=== PATIENT | female | born 1945 | race Caucasian/White ===

== ENCOUNTER 2021-06-20 12:11 | Inpatient (IN) | payer MEDICAID, MEDICARE ==
[~2021-06-20] VITALS: Ht 165.1 cm; Wt 68.0 kg
[~2021-06-20 12:11] MED LIST: DICL75TA PO; LORA0.5T48 PO; [UNRECOGNIZED DRUG - OTHER]
[2021-06-20 14:42] LABS: HEMATOCRIT 39.9 % (31.2-41.9); MEAN CORPUSCULAR HEMOGLOBIN 31.1 uug (24.7-32.8); MEAN CORPUSCULAR VOLUME 92.4 fL (75.5-95.3); PLATELET COUNT (AUTO) 264 K/uL (179-408)
[2021-06-20] MEDS ORDERED: LORAZEPAM 2 MG/1 ML VIAL IV ONE ×2 (14:45→17:45)
[2021-06-20 14:47] LABS: *BILIRUBIN,URIN NEGATIVE (NEGATIVE); *BLOOD, URINE NEGATIVE (NEGATIVE); *CLARITY,URINE CLEAR (CLEAR); *COLOR,URINE YELLOW (YELLOW); *KETONES,URINE NEGATIVE (NEGATIVE); *UROBILINOGEN,URINE 0.2 E.U./dl (NORMAL); LEUKOCYTE ESTERASE ,URINE NEGATIVE (NEGATIVE); NITRITE, URINE NEGATIVE (NEGATIVE); UGLUCOSE NEGATIVE (NEGATIVE)
[2021-06-20 14:49] LABS: CREATININE 0.8 mg/dL (0.6-1.3); POTASSIUM 3.5 mmol/L (3.5-5.1)
[2021-06-20] MEDS ORDERED: LORAZEPAM 2 MG/1 ML VIAL ONE ×3 (15:04→21:14)
[2021-06-20 15:05] LABS: BILIRUBIN,DIRECT 0.1 mg/dL (0.0-0.2); BILIRUBIN,TOTAL 0.5 mg/dL (0.2-1.0); TOTAL PROTEIN, SERUM 7.8 g/dL (6.4-8.2)
[2021-06-20] MEDS ORDERED: TEMAZEPAM 15 MG CAPSULE PO PRN (19:45)
[2021-06-20] MEDS ORDERED: ONDANSETRON 4 MG/2 ML VIAL IV PRN (19:45)
[2021-06-20] MEDS ORDERED: ACETAMINOPHEN 325 MG TABLET PO PRN (19:45)
[2021-06-20] MEDS ORDERED: LORAZEPAM 2 MG/1 ML VIAL IM ONE (21:15)
[2021-06-20] MEDS: DOCUSATE SODIUM 100 MG CAPSULE PO SCH (21:56)
[2021-06-20] MEDS ORDERED: DOCUSATE SODIUM 100 MG CAPSULE PO ONE ×2 (22:01→22:02)
[2021-06-21 00:30] VITALS: BP 135/66
[2021-06-21 04:00] VITALS: BP 98/71
[2021-06-21] MEDS: PANTOPRAZOLE SODIUM 40 MG TABLET.DR PO SCH (06:21)
[2021-06-21 06:54] LABS: HEMATOCRIT 36.5 % (31.2-41.9); MEAN CORPUSCULAR HEMOGLOBIN 31.1 uug (24.7-32.8); MEAN CORPUSCULAR VOLUME 93.2 fL (75.5-95.3); PLATELET COUNT (AUTO) 228 K/uL (179-408)
[2021-06-21 07:19] LABS: THYROID STIMULATING HORMONE 30.741 mIU/mL (0.358-3.740)
[2021-06-21 07:53] LABS: BILIRUBIN,TOTAL 0.4 mg/dL (0.2-1.0); CREATININE 0.8 mg/dL (0.6-1.3); MAGNESIUM 1.9 mg/dL (1.8-2.4); PHOSPHOROUS 3.9 mg/dL (2.5-4.9); TOTAL PROTEIN, SERUM 6.7 g/dL (6.4-8.2)
[2021-06-21 11:10] VITALS: BP 100/45
[2021-06-21] MEDS: QUETIAPINE FUMARATE 25 MG TABLET PO PRN (14:02)
[2021-06-21 15:31] VITALS: BP 113/67
[2021-06-21] MEDS: ATORVASTATIN 20 MG TABLET PO SCH (20:14)
[2021-06-21] MEDS: DOCUSATE SODIUM 100 MG CAPSULE PO SCH (20:14)
[2021-06-21 20:50] VITALS: BP 121/66
[2021-06-22] MEDS: QUETIAPINE FUMARATE 25 MG TABLET PO PRN ×3 (00:52→21:44)
[2021-06-22 04:42] VITALS: BP 128/66
[2021-06-22] MEDS: LEVOTHYROXINE SODIUM 50 MCG TABLET PO SCH (06:04)
[2021-06-22] MEDS: PANTOPRAZOLE SODIUM 40 MG TABLET.DR PO SCH (06:04)
[2021-06-22 12:00] VITALS: BP 116/77
[2021-06-22 16:37] VITALS: BP 113/77
[2021-06-22 20:03] VITALS: BP 106/50
[2021-06-22] MEDS: DOCUSATE SODIUM 100 MG CAPSULE PO SCH (20:30)
[2021-06-22] MEDS: ATORVASTATIN 20 MG TABLET PO SCH (20:30)
[2021-06-23 04:03] VITALS: BP 110/65
[2021-06-23] MEDS: PANTOPRAZOLE SODIUM 40 MG TABLET.DR PO SCH (06:08)
[2021-06-23] MEDS: LEVOTHYROXINE SODIUM 50 MCG TABLET PO SCH (06:08)
[2021-06-23] MEDS: QUETIAPINE FUMARATE 25 MG TABLET PO PRN (09:19)
[2021-06-23 11:52] VITALS: BP 109/73
[2021-06-23] MEDS ORDERED: QUET25TA36 PO (13:00)
[2021-06-23] MEDS ORDERED: ACET325T53 PO (13:00)
[2021-06-23] MEDS ORDERED: ATOR20TA PO (13:00)
[2021-06-23] MEDS ORDERED: LEVO50TA8 PO (13:00)
[2021-06-23] MEDS ORDERED: MULT-594 PO (13:00)
[2021-06-23] MEDS ORDERED: TEMA15CA PO (13:00)
[2021-06-23] MEDS ORDERED: DOCU-141 PO (13:00)
[2021-06-23] MEDS ORDERED: PANT40TA49 PO (13:00)
== END 2021-06-23 15:10 | DRG 71 ==
LOC: ER 12:11 → TRANSITION 19:45 → UNDOADMIN 20:44 → TELE3 23:41 → TRANSITION 23:41 → MEDSURG3 06-21 11:25
PROVIDERS: ADMIT Internal Medicine; ATTEND Internal Medicine
DX: G93.40 Encephalopathy, unspecified (principal); D68.59 Other primary thrombophilia; F03.91 Unspecified dementia, unspecified severity, with behavioral disturbance; Z60.2 Problems related to living alone; E03.9 Hypothyroidism, unspecified; E78.5 Hyperlipidemia, unspecified; F32.A Depression, unspecified; F41.9 Anxiety disorder, unspecified; Z20.822 Contact with and (suspected) exposure to COVID-19; M19.90 Unspecified osteoarthritis, unspecified site; K21.9 Gastro-esophageal reflux disease without esophagitis; Z74.09 Other reduced mobility; M50.30 Other cervical disc degeneration, unspecified cervical region
CPT/HCPCS: 36415; 70030-TC; 70450; 71045; 72125; 83605; 83735; 84100; 84443; 85025; 85730; 87040; 87086; 93005; 97161; A4663; G0378; J2060; J7040

== ENCOUNTER 2021-06-25 17:13 | Inpatient (IN) | payer MEDICARE, OTHER ==
[~2021-06-25] VITALS: Ht 165.1 cm; Wt 62.6 kg
[~2021-06-25 17:13] MED LIST changes: +ACET325T53 PO; +ATOR20TA PO; -DICL75TA PO; +DOCU-141 PO; +LEVO50TA8 PO; -LORA0.5T48 PO; +MULT-594 PO; +PANT40TA49 PO; +QUET25TA36 PO; +TEMA15CA PO; -[UNRECOGNIZED DRUG - OTHER]
[2021-06-25 17:45] LABS: HEMATOCRIT 37.1 % (31.2-41.9); MEAN CORPUSCULAR HEMOGLOBIN 31.5 uug (24.7-32.8); MEAN CORPUSCULAR VOLUME 92.6 fL (75.5-95.3); PLATELET COUNT (AUTO) 238 K/uL (179-408)
[2021-06-25 17:53] LABS: ETHANOL < 3 MG/DL (0-0)
[2021-06-25 17:57] LABS: ALANINE AMINOTRANSFERASE 17 U/L (14-59); ALKALINE PHOSPHATASE 56 U/L (50-136); ASPARTATE AMINOTRANSFERASE 17 U/L (15-37); BILIRUBIN,DIRECT 0.1 mg/dL (0.0-0.2); BILIRUBIN,TOTAL 0.4 mg/dL (0.2-1.0); CARBON DIOXIDE 22 mmol/L (21-32); CHLORIDE 97 mmol/L (98-107); CREATININE 0.8 mg/dL (0.6-1.3); GLUCOSE 125 mg/dL (74-106); POTASSIUM 3.4 mmol/L (3.5-5.1); TOTAL PROTEIN, SERUM 7.3 g/dL (6.4-8.2); UREA NITROGEN, BLOOD 17 mg/dL (7-18)
[2021-06-25 18:01] LABS: ACETAMINOPHEN < 2.0 ug/mL (10-30)
[2021-06-25] MEDS ORDERED: NA P133E RC (18:26)
[2021-06-25] MEDS ORDERED: BISA10SU61 RC (18:26)
[2021-06-25] MEDS ORDERED: MULT-213 PO (18:26)
[2021-06-25] MEDS ORDERED: CRAN425C6 PO (18:26)
[2021-06-25] MEDS ORDERED: MAGN400O6 PO (18:26)
[2021-06-25] MEDS ORDERED: QUET25TA PO (18:34)
[2021-06-25 19:16] LABS: *BILIRUBIN,URIN NEGATIVE (NEGATIVE); *CLARITY,URINE CLEAR (CLEAR); *COLOR,URINE LIGHT YELLOW (YELLOW); *KETONES,URINE NEGATIVE (NEGATIVE); *UROBILINOGEN,URINE 0.2 E.U./dl (NORMAL); LEUKOCYTE ESTERASE ,URINE NEGATIVE (NEGATIVE); NITRITE, URINE NEGATIVE (NEGATIVE); PH,URINE 5.5 (5.0-8.0); UGLUCOSE NEGATIVE (NEGATIVE)
[2021-06-25 19:22] LABS: *BLOOD, URINE TRACE (NEGATIVE)
[2021-06-25 19:23] LABS: BACTERIA,URINE NONE SEEN /HPF (NONE SEEN); RBC,URINE 0-3 /HPF (0-3); SQUAMOUS EPITHELIAL CELL,UR FEW /HPF (NONE SEEN); WBC,URINE 0-3 /HPF (0-3)
[2021-06-25 19:26] LABS: *AMPHETAMINE, URINE NEGATIVE (NEGATIVE); *CANNABINOID, URINE NEGATIVE (NEGATIVE); *COCCAINE, URINE NEGATIVE (NEGATIVE); *OPIATE, URINE NEGATIVE (NEGATIVE); *PHENCYCLIDINE SCREEN,URINE NEGATIVE (NEGATIVE)
[2021-06-25] MEDS ORDERED: MIDAZOLAM HCL 2 MG/2 ML VIAL IV ONE (19:30)
[2021-06-25] MEDS ORDERED: MIDAZOLAM HCL 2 MG/2 ML VIAL ONE (19:43)
[2021-06-25] MEDS ORDERED: MIDAZOLAM HCL 2 MG/2 ML VIAL IM ONE (19:45)
--- NOTE | 2021-06-25 20:06 | NUR ---
CALLED CRISIS TEAM THALIA AT [phone] AND WILL BE ON HER WAY.
[2021-06-25] MEDS ORDERED: OLANZAPINE 10 MG VIAL IM ONE ×5 (21:00→23:17)
--- NOTE | 2021-06-25 22:10 | NUR ---
GAVE REPORT TO WILLOW.
[2021-06-25] MEDS ORDERED: LORAZEPAM 2 MG/1 ML VIAL IM ONE (23:15)
[2021-06-25] MEDS ORDERED: MAG HYDROX/AL HYDROX/SIMETH 30 ML LIQUID UDC PO PRN (23:30)
[2021-06-25] MEDS ORDERED: LORAZEPAM 0.5 MG TABLET PO PRN (23:30)
[2021-06-25] MEDS ORDERED: ACETAMINOPHEN 325 MG TABLET PO PRN (23:30)
[2021-06-25] MEDS ORDERED: MAGNESIUM HYDROXIDE 30 ML LIQUID UDC PO PRN (23:30)
[2021-06-26 00:15] VITALS: BP 125/68
--- NOTE | 2021-06-26 00:45 | NUR ---
ADMISSION NOTED/CHEMICAL RESTRAIN: ADMITTED AT [facility] LAST NIGHT AT APPROX 2315, A 76 YEARS OLD FEMALE, FARSI SPEAKER, ON A 72 HRS HOLD FOR DTO AND GD UNDER THE CARE OF DR VILLEDA. PER RECORDS, PATIENT LIVES AT [facility]. PER HOLD, AND ACCORDING TO THE FACILITY, PATIENT WAS INCREASINGLY CONFUSED AND AGITATED, WANTING TO LEAVE THE FACILITY; THROWING THINGS ON THE FLOOR, SHAKING HER BED, SLAMMING WATER PITCHER ON THE FLOOR, DOES NOT RESPOND TO REDIRECTION, LOUD, DISRUPTIVE. DURING FACE TO FACE ASSESSMENT BY CRISIS TEAM, PATIENT IS CONFUSED, DISORGANIZE, AND DISORIENTED. SHE WAS SCREAMING, YELLING ANXIOUS AND RESTLESS. SHE WAS GIVEN EMERGENCY MEDICATION TO CALM HER DOWN. HOLD WILL ON 06/28/21 AT 2107. UPON ADMISSION TO THE UNIT, PATIENT WAS NOTED A/O X 1. SHE WAS NOTED CONFUSED, RESTLESS, COMBATIVE; SHE APPEARED DISORIENTED. SHE WAS TRYING TO LEAVE THE UNIT, SHE WAS LOUD AND UNABLE TO BE REDIRECTED. DR VILLEDA WAS NOTIFIED AND NEW ORDER OBTAINED TO ADMINISTER ZYPREXA 5MG IM AND ATIVAN 1MG IM ONE TIME ONLY. ORDER WAS NOTED AND CARRIED OUT. FACE TO FACE ASSESSMENT WAS DONE, PATIENT REFLECTS WHAT IS WRITTEN ON THE HOLD. PATIENT WAS GIVEN HER ADVISEMENT WELL HER BOOKLET FOR PATIENT'S RIGHT TO MENTAL HEALTH FACILITY. HEAD TO TOE SKIN ASSESSMENT WAS LIMITED D/T PATIENT'S POOR COMPLIANT. HOWEVER, IT WAS NOTED MULTIPLE BRUISES ON BOTH ARMS AND LEFT POSTERIOR HAND, IT WAS ALSO NOTED EDEMA +1 ON BOTH LOWER EXTREMITIES. WILL CONTINUE TO MONITOR.
--- NOTE | 2021-06-26 01:00 | NUR ---
REASSESSMENT CHEMICAL RESTRAIN: PATIENT NOTED SITTING IN A BRANDY CHAIR NEAR THE NURSING STATION FOR SAFETY. SHE IS NOTED LESS COMBATIVE LESS AGITATED; HOWEVER, SHE CONTINUE RESTLESS AND UNABLE TO CFS. WILL CONTINUE TO MONITOR.
--- NOTE | 2021-06-26 01:45 | NUR ---
PATIENT NOTED SLEEPING IN HER BED COMFORTABLY. WILL CONTINUE Q15 MIN CHECKS PER UNIT PROTOCOL.
[2021-06-26 03:35] VITALS: BP 125/68
[2021-06-26] MEDS: LEVOTHYROXINE SODIUM 50 MCG TABLET PO SCH (07:00)
--- NOTE | 2021-06-26 07:08 | NUR ---
Patient slept for approx 4hrs through the night. she refused blood drawn this morning. she also refused Synthroid medication. will continue to monitor.
[2021-06-26 08:14] VITALS: BP 111/72
[2021-06-26] MEDS: QUETIAPINE FUMARATE 25 MG TABLET PO SCH ×3 (10:35→20:16)
--- NOTE | 2021-06-26 15:06 | NUR ---
JANA Initial Discharge Note: Pt currently resides at [id number] [place] [id number] ([phone]). Per pt's daughter, the family does not want the pt to discharge back to current facility. Pt's daughter Shameka ([phone]) provided [facility] location and stated that is next in line at their facility upon bed availability. JANA will continue to work with pt, family and MD to ensure a safe and proper discharge plan.
[2021-06-26 16:30] VITALS: BP 127/78
[2021-06-26] MEDS: ATORVASTATIN 20 MG TABLET PO SCH (20:15)
--- NOTE | 2021-06-26 20:37 | NUR ---
Received patient in the [facility], med compliant, and interacts with staff. Patient will remain in a psych facility for further evaluation and treatment.
[2021-06-26 22:17] VITALS: BP 128/68
--- NOTE | 2021-06-27 04:18 | NUR ---
Firearms Report: Field Geologist completed and submitted a [employer]J firearms report for 5150 danger to others and grave disability certifications. A copy of report has been placed in patient chart.
[2021-06-27] MEDS: LEVOTHYROXINE SODIUM 50 MCG TABLET PO SCH (06:22)
--- NOTE | 2021-06-27 08:00 | NUR ---
Gps/Anesthesiology Medical Doctor- Patient received suitting on her raquel- chair, extrmely anxious and agitated, banging her table, yelling , lound and difficulty redirecting patient. Patient speaks Farsi, unable tto get environmental sciences professor, unable to use environmental sciences professor phone. Dr Laboy was in to see patient, observed of increased agitation, labile mood, safety emphasized. Patches of multiple bruises/ecchymosis to her forearms.
[2021-06-27] MEDS ORDERED: OLANZAPINE 10 MG VIAL IM ONE (08:30)
[2021-06-27 09:00] VITALS: BP 112/71
[2021-06-27] MEDS: QUETIAPINE FUMARATE 25 MG TABLET PO SCH ×3 (09:00→21:24)
[2021-06-27] MEDS: ASPIRIN EC 81 MG TABLET.DR PO SCH (09:00)
--- NOTE | 2021-06-27 10:00 | NUR ---
Gps/Pantry Steward/Stewardess -Per son from [facility], on speaker phone trying to talk to the patient , trying to calm her down,. Son verbalized feelings of being upset, " iI have my siblings , my sister and my brother, they want my mother to be , i had brain surgery, i cant healp " informed of the Hot Press Operator Zahra stated words by son from [place].Son from [place] also stated," Hospital foods are thwe worst, they are poison", does not want his mother drinking milk .
--- NOTE | 2021-06-27 11:30 | NUR ---
Gps/Seafood Technology Specialist- Kept up in her chair for safety, monitoring needs, talking to herself in her own languages. Reoffered routine am meds, crushed with apple sauce.
[2021-06-27] MEDS: LORAZEPAM 0.5 MG TABLET PO PRN (12:39)
[2021-06-27 20:44] VITALS: BP 91/43
[2021-06-27] MEDS: ATORVASTATIN 20 MG TABLET PO SCH (21:24)
[2021-06-27] MEDS: ZOLPIDEM 5 MG TABLET PO PRN (22:27)
[2021-06-28] MEDS: LORAZEPAM 0.5 MG TABLET PO PRN ×2 (02:00→21:40)
--- NOTE | 2021-06-28 04:05 | NUR ---
Received to care, up in raquel chair, initially sleeping, but woke around 1999, talking to self, but answering appropriately. She was compliant with her bedtime medications, and was assisted with feeding herself a snack of apple juice, pudding and jello, since her hands were shaky. She was given a PRN Ambien at 2226, and then she was assisted to the bathroom(unsteady gait) and bed. Within a few minutes, she was trying to get up, so she was assisted back into the raquel chair, for safety. Since then, she appears to have gotten more confused and psychotic, talking to self, appearing distracted by internal stimuli. She refused PRN Ativan, which was offered several times, since 020, hasn't slept and remains confused, at this time.
--- NOTE | 2021-06-28 04:38 | NUR ---
She was assisted to the bathroom, and ambulated down the hallway, to her room. When she got there, she stayed at her doorway, and refused to go inside. after a few minutes, she eventually was assisted back in the raquel chair, for safety. After a few minutes, she fell asleep, and remains asleep. no distress, noted.
[2021-06-28] MEDS: LEVOTHYROXINE SODIUM 50 MCG TABLET PO SCH (06:55)
[2021-06-28 08:00] VITALS: BP 119/61
[2021-06-28] MEDS: ASPIRIN EC 81 MG TABLET.DR PO SCH (09:00)
[2021-06-28] MEDS: QUETIAPINE FUMARATE 25 MG TABLET PO SCH ×3 (09:53→21:00)
[2021-06-28] MEDS ORDERED: QUETIAPINE FUMARATE 25 MG TABLET PO PRN (15:30)
[2021-06-28 15:42] VITALS: BP 118/72
[2021-06-28 20:00] VITALS: BP 99/54
[2021-06-28] MEDS: ATORVASTATIN 20 MG TABLET PO SCH (21:00)
--- NOTE | 2021-06-28 21:30 | NUR ---
Received to care, up in raquel chair, at nurses station, talking to self in Farsi, refusing all medications, food, and fluids. Becomes physically aggressive, at times, with staff, when care is attempted. Currently yelling loudly, banging on the table. Staff is unable to redirect her behavior. Will continue to monitor closely.
[2021-06-28] MEDS: ZOLPIDEM 5 MG TABLET PO PRN (21:39)
[2021-06-28] MEDS ORDERED: OLANZAPINE 10 MG VIAL IM PRN (21:45)
--- NOTE | 2021-06-28 21:45 | NUR ---
Remains agitated, yelling and banging on table, She tries to scratch or hit staff, when they are in her vicinity. Continues to refuse all medications, food, fluids, or toileting. Dr Nicole was paged. New orders were received. Awaiting Pharmacy approval to carry them out.
--- NOTE | 2021-06-28 22:22 | NUR ---
Zyprexa 5 mg IM was given to Left hip at this time, per MD orders. Remains up in raquel chair at nurses station for safety, and closer monitoring.
--- NOTE | 2021-06-29 00:30 | NUR ---
Remains restless, yelling out, but appears calmer, and exhibits no signs of physical aggression. Remains up in raquel chair, for safety.
[2021-06-29 00:34] LABS: HEMATOCRIT 38.8 % (31.2-41.9); MEAN CORPUSCULAR HEMOGLOBIN 31.2 uug (24.7-32.8); MEAN CORPUSCULAR VOLUME 92.3 fL (75.5-95.3); PLATELET COUNT (AUTO) 233 K/uL (179-408)
[2021-06-29 00:44] LABS: MAGNESIUM 1.9 mg/dL (1.8-2.4); PHOSPHOROUS 4.1 mg/dL (2.5-4.9)
[2021-06-29 00:46] LABS: BILIRUBIN,TOTAL 0.5 mg/dL (0.2-1.0); CREATININE 0.8 mg/dL (0.6-1.3); POTASSIUM 3.8 mmol/L (3.5-5.1); TOTAL PROTEIN, SERUM 7.3 g/dL (6.4-8.2)
[2021-06-29] MEDS: ZOLPIDEM 5 MG TABLET PO PRN (01:36)
--- NOTE | 2021-06-29 02:00 | NUR ---
Pt was assisted to bed at 0115. She continued to be restless and agitated, so she was given PRN Ambien at 0136. As of now, she appears to be asleep. No distress noted. Monitored closely for safety.
[2021-06-29] MEDS: LEVOTHYROXINE SODIUM 50 MCG TABLET PO SCH (07:00)
[2021-06-29 08:00] VITALS: BP 111/71
[2021-06-29 08:55] LABS: HEMATOCRIT 35.9 % (31.2-41.9); MEAN CORPUSCULAR HEMOGLOBIN 31.2 uug (24.7-32.8); MEAN CORPUSCULAR VOLUME 92.1 fL (75.5-95.3); PLATELET COUNT (AUTO) 224 K/uL (179-408)
[2021-06-29 09:03] LABS: CREATININE 0.8 mg/dL (0.6-1.3); POTASSIUM 3.7 mmol/L (3.5-5.1)
[2021-06-29 09:09] LABS: BILIRUBIN,TOTAL 0.6 mg/dL (0.2-1.0); TOTAL PROTEIN, SERUM 6.6 g/dL (6.4-8.2)
[2021-06-29] MEDS: LORAZEPAM 0.5 MG TABLET PO PRN (09:09)
[2021-06-29] MEDS: ASPIRIN EC 81 MG TABLET.DR PO SCH (09:09)
[2021-06-29] MEDS: QUETIAPINE FUMARATE 25 MG TABLET PO SCH ×3 (09:10→20:29)
--- NOTE | 2021-06-29 11:53 | NUR ---
GPS: Nursing Notes: Thought Disorder: Patient is awake and responding to her name, unable to speak Indonesian, but talking Farsi to staff, trying to climb over the side rail without any regard for her safety this am, needs assistance with ambulation, unsteady gait, needs prompting to participate in therapeutic groups, continue to monitor for safety, resistant with nursing care at times, A/Ox1, unable to formulate a viable plan for self care, continue with treatment plan.
[2021-06-29 16:00] VITALS: BP 102/61
[2021-06-29 20:10] VITALS: BP 110/62
[2021-06-29] MEDS: ATORVASTATIN 20 MG TABLET PO SCH (20:29)
[2021-06-30] MEDS: LEVOTHYROXINE SODIUM 50 MCG TABLET PO SCH (06:02)
--- NOTE | 2021-06-30 06:13 | NUR ---
GPS: Patient remained awake most of the night. slept only 3.45 hrs through the night. refused all po meds. alert to name only. awake and responding to her name, speaks some Mohawk, but mostly speaks Farsi to staff, unsteady gait needs assistance. assisted with adl's. continue to monitor for safety, continue plan of care.
[2021-06-30 08:00] VITALS: BP 116/66
[2021-06-30] MEDS: QUETIAPINE FUMARATE 25 MG TABLET PO SCH ×3 (08:15→21:14)
[2021-06-30] MEDS: ASPIRIN EC 81 MG TABLET.DR PO SCH (08:15)
--- NOTE | 2021-06-30 10:47 | NUR ---
GPS: Nursing Notes: Thought Disorder: Patient is awake and responding to her name, impaired judgment, able to speak Vietnamese, but regressing to speak her emmonak language - Farsi to staff at times, needs a lot of prompting to be compliant with her AM medications, needs assistance with ADL's, unsteady gait, needs assistance with ambulation, but patient believes that she can walk without assistance, history of falling at her facility, resistant with nursing care at times, unable to formulate a viable plan for self care, continue to monitor for safety, continue with treatment plan.
[2021-06-30] MEDS: LORAZEPAM 0.5 MG TABLET PO PRN (12:23)
[2021-06-30 16:00] VITALS: BP 108/75
[2021-06-30] MEDS: ENSURE ENLIVE (VAN) 240 ML LIQUID PO SCH (16:34)
[2021-06-30] MEDS: ZOLPIDEM 5 MG TABLET PO PRN (21:14)
[2021-06-30] MEDS: ATORVASTATIN 20 MG TABLET PO SCH (21:15)
[2021-07-01 00:13] VITALS: BP 103/54
[2021-07-01] MEDS: LEVOTHYROXINE SODIUM 50 MCG TABLET PO SCH (06:49)
[2021-07-01] MEDS: ASPIRIN EC 81 MG TABLET.DR PO SCH (08:15)
[2021-07-01] MEDS: QUETIAPINE FUMARATE 25 MG TABLET PO SCH ×3 (08:15→20:16)
[2021-07-01] MEDS: ENSURE ENLIVE (VAN) 240 ML LIQUID PO SCH ×2 (08:16→16:45)
[2021-07-01 08:30] VITALS: BP 96/55
--- NOTE | 2021-07-01 09:24 | NUR ---
JANA Facility Contact: JANA contacted [facility] for [facility] [place] ([phone]) and spoke with Laureen who stated that they do not have the pt's application from the family and there is a several month waiting list even after referral from [place]. JANA also contacted [facility] ([phone]) and spoke with Jenise regarding referring the pt and Jenise stated they are aware of the pt and are now open for admission. JANA sent referral packet to facility and waiting to hear back.
--- NOTE | 2021-07-01 13:44 | NUR ---
GPS: Nursing Notes: Thought Disorder: Patient is awake and responding to her name, gets easily irritable when redirected, impaired judgment, resistant with nursing care at times, redirected and reoriented during shift, disoriented, forgetful at times, need prompting to participate in therapeutic groups, assisted with ADL's, ambulatory with supervision, unsteady gait, unable to formulate a viable plan for self care, continue to monitor for safety, continue with treatment plan.
[2021-07-01] MEDS: LORAZEPAM 0.5 MG TABLET PO PRN (17:35)
[2021-07-01 18:32] VITALS: BP 102/55
[2021-07-01 20:00] VITALS: BP 115/61
[2021-07-01] MEDS: ATORVASTATIN 20 MG TABLET PO SCH (20:16)
[2021-07-01] MEDS: ZOLPIDEM 5 MG TABLET PO PRN (23:06)
--- NOTE | 2021-07-02 02:43 | NUR ---
Received to care, up in raquel chair, talking to self. yelling, and easily agitated at times, but compliant with medications, and Bedtime snack. PRN Cesario was given at 2306. She was assisted to the bathroom, but refused to go. Diaper changed, with some resistance. As of now, she appears to be sleeping. No distress noted.
[2021-07-02] MEDS: LEVOTHYROXINE SODIUM 50 MCG TABLET PO SCH (06:53)
--- NOTE | 2021-07-02 06:59 | NUR ---
Slept 5 hours. is now awake, and calm. No distress noted.
[2021-07-02] MEDS: ASPIRIN EC 81 MG TABLET.DR PO SCH (08:32)
[2021-07-02] MEDS: QUETIAPINE FUMARATE 25 MG TABLET PO SCH ×2 (08:32→16:23)
[2021-07-02] MEDS: ENSURE ENLIVE (VAN) 240 ML LIQUID PO SCH ×2 (08:33→16:23)
--- NOTE | 2021-07-02 12:01 | NUR ---
JANA Family Contact: Pt's son Jorge ([phone]) contacted JANA and stated that [facility] ([phone]) notified the family that all they need to accept the pt is referral paperwork from [facility]. JANA notified Jorge that SW spoke with [facility] and they reported to JANA that there is a 3 month long waiting list and they will not be able to accept the patient as they do not even have an application on file for the pt. Jorge asked JANA to not call [facility] anymore and let him make the calls. Jorge appeared frustrated and asked JANA and reported to SW that Jorge will also talk to Dr. Laboy regarding pt's progress.
--- NOTE | 2021-07-02 13:21 | NUR ---
GPS: Nursing Notes: Thought Disorder: Patient is awake and responding to her name, impaired judgment, resistant with nursing care at times, sundown behavior, gets easily irritable when redirected, unable to formulate a viable plan for self care, disoriented, needs assistance with ADL's, believes that she is leaving today, continue to monitor for safety, continue with treatment plan.
[2021-07-02] MEDS: LORAZEPAM 0.5 MG TABLET PO PRN ×2 (14:21→23:33)
[2021-07-02 15:46] VITALS: BP 108/68
[2021-07-02 19:46] VITALS: BP 125/74
[2021-07-02] MEDS: ATORVASTATIN 20 MG TABLET PO SCH (20:32)
[2021-07-02] MEDS: QUETIAPINE FUMARATE 100 MG TABLET PO SCH (20:33)
[2021-07-02] MEDS: ZOLPIDEM 5 MG TABLET PO PRN (21:33)
--- NOTE | 2021-07-03 03:43 | NUR ---
Received to care, up in raquel chair, talking to self, in Farsi, appearing to be hallucinating at times, not answering appropriately, but compliant with medications. Snack and fluids were fed to her, as she was too confused to feed herself. PRN Ambien was given for insomnia, at 2132. That was ineffective, so PRN Ativan was given at 2333, and she was toileted, and assisted to bed by around 0100. She was asleep by around 0130, and continues to sleep. No distress noted. Will continue to monitor closely.
--- NOTE | 2021-07-03 06:54 | NUR ---
Slept 4.25 hours total. Is now asleep. No distress, noted.
[2021-07-03] MEDS: LEVOTHYROXINE SODIUM 50 MCG TABLET PO SCH (07:00)
[2021-07-03 07:30] VITALS: BP 90/52
[2021-07-03] MEDS: ASPIRIN EC 81 MG TABLET.DR PO SCH (09:08)
[2021-07-03] MEDS: QUETIAPINE FUMARATE 25 MG TABLET PO SCH ×2 (09:08→17:09)
[2021-07-03] MEDS: ENSURE ENLIVE (VAN) 240 ML LIQUID PO SCH ×2 (09:09→17:16)
[2021-07-03 16:00] VITALS: BP 94/56
--- NOTE | 2021-07-03 16:37 | NUR ---
Received patient sleeping in her room. A/O X 1 -2 to person. Pt. affect is forgetful, confused, disoriented at times. Compliant with medications. Requires more than minimal assistance with ADL. Continent. Reality orientation provided. Fall and safety precautions implemented.
[2021-07-03 20:00] VITALS: BP 112/70
[2021-07-03] MEDS: TRAZODONE 50 MG TABLET PO SCH (20:46)
[2021-07-03] MEDS: ATORVASTATIN 20 MG TABLET PO SCH (20:46)
[2021-07-03] MEDS: QUETIAPINE FUMARATE 100 MG TABLET PO SCH (21:58)
[2021-07-04] MEDS: LEVOTHYROXINE SODIUM 50 MCG TABLET PO SCH (07:00)
[2021-07-04 07:30] VITALS: BP 110/61
[2021-07-04] MEDS: ASPIRIN EC 81 MG TABLET.DR PO SCH (08:12)
[2021-07-04] MEDS: QUETIAPINE FUMARATE 25 MG TABLET PO SCH ×2 (08:12→17:05)
[2021-07-04] MEDS: ENSURE ENLIVE (VAN) 240 ML LIQUID PO SCH ×2 (08:13→17:06)
--- NOTE | 2021-07-04 11:58 | NUR ---
Social Work Coordination of Care: Hot Wound Spring Production Supervisor faxed patient's referral packet including: History and Physical, Consultation, Progress Notes, Medication List and Labs to the following facilities for review and possible penitentiary placement: [facility] ([phone]) and spoke with Chriss.
--- NOTE | 2021-07-04 13:49 | NUR ---
SW Facility Contact: Chriss from [facility] ([phone]) called to notify SW that they will not be able to accept the patient upon discharge.
--- NOTE | 2021-07-04 15:59 | NUR ---
Received patient sleeping in her room. A/O X 2 to person, place. Pt. is forgetful, confused at times, labile, disorganized. Ambulates with assistance. Requires more than minimal assistance with ADL. Continent of bladder and bowel. Compliant with medications. Pt. is encourage to verbalize concerns. Fall and safety precautions implemented.
[2021-07-04 16:00] VITALS: BP 128/54
--- NOTE | 2021-07-04 16:26 | NUR ---
JANA Family Contact Update: JANA contacted pt's son, Jorge ([phone]) to notify Jorge that [facility] ([phone]) contacted SW and notified her that they cannot accept the pt. Jorge appeared upset and responded, "Why did you call [facility] after I asked you not to?" JANA reported that I need to follow Dr. Laboy's orders to call [facility] to confirm if pt is accepted to their facility upon discharge. Jorge reported, "Only speak with Grady at [facility] she said they have a bed available for her." JANA asked to clarify what time Jorge spoke with [facility] and he stated, "this morning on 07/04/21." JANA stated that [facility] called this afternoon on 07/04/21 and stated the pt is not accepted upon discharge. Jorge responded he understands and he will contact [facility] again and confirm with SW after calling. JANA reported to Jorge that if [facility] does not accept, the hospital has to move forward with another accepting penitentiary facility for the pt upon discharge. Jorge responded, "I understand."
[2021-07-04 20:00] VITALS: BP 115/87
[2021-07-04] MEDS: ATORVASTATIN 20 MG TABLET PO SCH ×2 (20:01→21:00)
[2021-07-04] MEDS: QUETIAPINE FUMARATE 100 MG TABLET PO SCH ×2 (20:01→21:00)
[2021-07-04] MEDS: TRAZODONE 50 MG TABLET PO SCH ×2 (20:01→21:00)
[2021-07-05] MEDS: ZOLPIDEM 5 MG TABLET PO PRN (00:53)
--- NOTE | 2021-07-05 03:25 | NUR ---
JANA Family Contact: JANA called pt's daughter Shameka ([phone]) and notified her that the pt's discharge day has changed to 07/07/21 due to facility request. Pt's daughter was agreeable with the plan and notified JANA she will tell Jorge as well.
--- NOTE | 2021-07-05 04:00 | NUR ---
GPS NOTE: Received patient at the start of the shift in Lamar chair. Very restless and angry. The patient refused to take any medications despite multiple attempts by both nurses, and at different times. The patient would not speak in any Iranian at all during the shift so far. When staff was assisting the patient to the bathroom, she began yelling, hitting staff and hitting herself in the head. A few times this physician underwriter put patient in the bed, but the patient would get out right away and go to the roommates bed and bother her. Patient then was put in the Lamar chair and brought back out to the station for safety. The patient was given a snack and water. The physician underwriter was able to have the housekeeper/custodian/laundry worker speak with her in her language . Per the steel floor pan placing supervisor, the patient was confused and could not answer any of the questions appropriately. Plan is to monitor the patient for further behavior escalation and for safety. The patient is needing constant monitoring at this time.
[2021-07-05] MEDS: LEVOTHYROXINE SODIUM 50 MCG TABLET PO SCH (06:48)
[2021-07-05 07:30] VITALS: BP 117/66
[2021-07-05] MEDS: LORAZEPAM 0.5 MG TABLET PO PRN ×2 (08:05→20:35)
[2021-07-05] MEDS: ENSURE ENLIVE (VAN) 240 ML LIQUID PO SCH ×2 (08:05→16:16)
[2021-07-05] MEDS: QUETIAPINE FUMARATE 25 MG TABLET PO SCH ×2 (08:05→16:16)
[2021-07-05] MEDS: ASPIRIN EC 81 MG TABLET.DR PO SCH (08:05)
--- NOTE | 2021-07-05 10:00 | NUR ---
Social Work Coordination of Care: Master Barber faxed patient's referral packet including: History and Physical, Consultation, Progress Notes, Medication List and Labs to the following facilities for review and possible mcfp placement: [facility] ([phone]), [facility] ([phone]), and [facility] ([phone]).
[2021-07-05 16:46] VITALS: BP 116/72
[2021-07-05] MEDS: ATORVASTATIN 20 MG TABLET PO SCH (20:36)
[2021-07-05] MEDS: TRAZODONE 50 MG TABLET PO SCH (20:36)
[2021-07-05] MEDS: QUETIAPINE FUMARATE 100 MG TABLET PO SCH (20:36)
[2021-07-05 20:46] VITALS: BP 144/71
[2021-07-06] MEDS: LEVOTHYROXINE SODIUM 50 MCG TABLET PO SCH (06:32)
[2021-07-06 07:30] VITALS: BP 93/44
[2021-07-06] MEDS: ENSURE ENLIVE (VAN) 240 ML LIQUID PO SCH ×2 (08:09→16:06)
[2021-07-06] MEDS: QUETIAPINE FUMARATE 25 MG TABLET PO SCH ×3 (08:09→16:09)
[2021-07-06] MEDS: ASPIRIN EC 81 MG TABLET.DR PO SCH (08:09)
[2021-07-06] MEDS: LORAZEPAM 0.5 MG TABLET PO PRN (08:09)
[2021-07-06 16:44] VITALS: BP 99/42
[2021-07-06 20:00] VITALS: BP 114/65
[2021-07-06] MEDS: ATORVASTATIN 20 MG TABLET PO SCH (20:25)
[2021-07-06] MEDS: TRAZODONE 50 MG TABLET PO SCH (20:25)
[2021-07-06] MEDS: QUETIAPINE FUMARATE 100 MG TABLET PO SCH (20:25)
[2021-07-07] MEDS: LEVOTHYROXINE SODIUM 50 MCG TABLET PO SCH (06:58)
[2021-07-07 07:30] VITALS: BP 117/83
[2021-07-07] MEDS: LORAZEPAM 0.5 MG TABLET PO PRN (08:33)
[2021-07-07] MEDS: QUETIAPINE FUMARATE 25 MG TABLET PO SCH ×2 (08:33→16:32)
[2021-07-07] MEDS: ASPIRIN EC 81 MG TABLET.DR PO SCH (08:33)
[2021-07-07] MEDS: ENSURE ENLIVE (VAN) 240 ML LIQUID PO SCH ×2 (08:35→16:32)
[2021-07-07 16:00] VITALS: BP 96/50
[2021-07-07 20:00] VITALS: BP 100/60
[2021-07-07] MEDS: QUETIAPINE FUMARATE 100 MG TABLET PO SCH ×3 (20:06→21:00)
[2021-07-07] MEDS: ATORVASTATIN 20 MG TABLET PO SCH (20:06)
[2021-07-07] MEDS: TRAZODONE 50 MG TABLET PO SCH ×3 (20:07→21:00)
[2021-07-08] MEDS: ZOLPIDEM 5 MG TABLET PO PRN (01:39)
[2021-07-08] MEDS: LEVOTHYROXINE SODIUM 50 MCG TABLET PO SCH (06:31)
[2021-07-08 07:39] VITALS: BP 106/58
[2021-07-08] MEDS: ENSURE ENLIVE (VAN) 240 ML LIQUID PO SCH ×2 (08:00→16:47)
[2021-07-08] MEDS: ASPIRIN EC 81 MG TABLET.DR PO SCH (09:00)
[2021-07-08] MEDS: QUETIAPINE FUMARATE 25 MG TABLET PO SCH ×2 (09:00→16:47)
--- NOTE | 2021-07-08 10:32 | NUR ---
JANA Family Contact Update: JANA contacted pt's cee Myles ([phone]) and notified her that pt is confirmed for discharge at [facility] ([phone]) today. Shameka is aware and agreeable with the discharge plan. Shaemka did state she would like to extend pt's hold until pt is accepted to their chosen facility at [facility] ([phone]), however JANA informed Shameka that the [facility] in admissions stated they currently do not have beds and cannot accept.
--- NOTE | 2021-07-08 10:35 | NUR ---
JANA Discharge Note: Pt will be discharged to [facility] ([phone]) [address] [place] [address] via Ambulance transportation at 1PM. JANA spoke with admin coordinator Annette at the facility who states they are ready to accept the patient today in room 18B. JANA left a voicemail for pts son, Jorge ([phone]) regarding the discharge plan and JANA also notified pts daughter, Shameka ([phone]) on 07/08/21 who is agreeable with the discharge plan. Pt is aware and agreeable with discharge plans. Pt is alert and oriented x1 (name), is unable to plan for self-care at this time; however, is willing to accept care at SNF. Pt denies any suicidal or homicidal ideation. Pt will follow-up at the facility with her Psychiatrist and Swedger assigned at the facility when pt arrives per admissions. Pt presents with calm mood and congruent affect.
--- NOTE | 2021-07-08 15:08 | NUR ---
Received patient sleeping in her room. A/O X 1 to person. Pt. is confused, forgetful, sociable, pleasant, irritable at times. Ambulates with assistance. Requires more than minimal assistance with ADL, needs to be redirected. Continent of bladder and bowel. Reality orientation provided. Fall and safety precautions implemented.
[2021-07-08 16:45] VITALS: BP 94/48
--- NOTE | 2021-07-08 17:54 | NUR ---
Received orders from Dr. Laboy to discharge this patient. [facility] arrived at 17:40 to transport patient to [facility]. Patient left the unit at 17:50. Patient denies SI/HI AV/HV. Denies SOB. Fall and safety precautions implemented.
== END 2021-07-08 17:50 | DRG 885 ==
LOC: ER 17:19 → GPS 23:03
PROVIDERS: ADMIT Psychiatry & Neurology Psychiatry; ATTEND Nurse Practitioner Acute Care
DX: F29 Unspecified psychosis not due to a substance or known physiological condition (principal); G92.8 Other toxic encephalopathy; D68.59 Other primary thrombophilia; E87.1 Hypo-osmolality and hyponatremia; A69.22 Other neurologic disorders in Lyme disease; F02.81 Dementia in other diseases classified elsewhere, unspecified severity, with behavioral disturbance; E78.5 Hyperlipidemia, unspecified; E03.9 Hypothyroidism, unspecified; E87.6 Hypokalemia; F41.1 Generalized anxiety disorder; M19.90 Unspecified osteoarthritis, unspecified site; Z79.899 Other long term (current) drug therapy; Z20.822 Contact with and (suspected) exposure to COVID-19; F41.9 Anxiety disorder, unspecified; F13.10 Sedative, hypnotic or anxiolytic abuse, uncomplicated; Z74.09 Other reduced mobility; K21.9 Gastro-esophageal reflux disease without esophagitis; G31.83 Neurocognitive disorder with Lewy bodies
CPT/HCPCS: 36415; 83605; 83735; 84100; 85025; 93005; 97161; A4663; C1758; G0480; J2060; J2250; J2358